=== PATIENT | female | born 1965 | race Caucasian/White ===

== ENCOUNTER → 2017-01-03 | Outpatient (CLI) | payer OTHER ==
[2017-01-03 07:56] LABS: Basophils # (A) 0.1 k/uL (0-0.2); Basophils % (A) 1 %; CH 31.1; CHCM 33.6; Eosinophils # (A) 0.1 k/uL (0-0.7); Eosinophils % (A) 3 %; HCT 39.8 % (34.0-46.0); HDW 2.35; HGB 13.1 gm/dL (11.4-16.0); Luc # (Auto) 0.11; Luc % (Auto) 2; Lymphocytes # (A) 1.6 k/uL (1.0-4.8); Lymphocytes % (A) 29 %; MCH 30.6 pg (25.0-35.0); MCHC 32.9 g/dL (31.0-37.0); MCV 93.2 fL (80.0-100.0); Mean Platelet Volume 7.4; Monocytes # (A) 0.3 k/uL (0-1.0); Monocytes % (A) 6 %; Neutrophils # (A) 3.3 k/uL (1.3-7.7); Neutrophils % (A) 60 %; RBC 4.28 m/uL (3.80-5.40); RDW 14.5 % (11.5-15.5); WBC 5.5 k/uL (3.8-10.6); WBC (Perox) 5.14
[2017-01-03 08:05] LABS: ALT 38 U/L (9-52); AST 21 U/L (14-36); Alkaline Phosphatase 108 U/L (38-126); Anion Gap 10 mmol/L; Blood Urea Nitrogen 17 mg/dL (7-17); Calcium 9.8 mg/dL (8.4-10.2); Carbon Dioxide 28 mmol/L (22-30); Chloride 105 mmol/L (98-107); Cholesterol 214 mg/dL (<200); Glucose 94 mg/dL (74-99); HDL Cholesterol 75 mg/dL (40-60); Non-African American GFR(MDRD) >60 (>60 ml/min/1.73 sqM); Potassium 4.9 mmol/L (3.5-5.1); Sodium 143 mmol/L (137-145); Total Bilirubin 0.5 mg/dL (0.2-1.3); Total Protein 7.3 g/dL (6.3-8.2)
== END | disposition home or self-care (01) ==
LOC: LABWHC1 07:16
PROVIDERS: ATTEND Family Medicine
DX: Z00.00 Encounter for general adult medical examination without abnormal findings (principal); F43.21 Adjustment disorder with depressed mood
CPT/HCPCS: 36415; 80053; 80061; 84439; 84443; 85025

== ENCOUNTER 2017-09-11 14:03 | Emergency (ER) | payer OTHER ==
--- NOTE | 2017-09-11 15:49 | ED ---
General Adult HPI - General Chief complaint: Head Injury Stated complaint: Fell hit back of head on sunday/headache Time Seen by Provider: 09/11/17 15:18 Source: patient, RN notes reviewed Mode of arrival: ambulatory Limitations: no limitations - History of Present Illness Initial comments: 52-year-old female presents to the emergency department for chief complaint of head trauma 3 days ago. Patient states she was letting her dog out when she did not have the lights turned on in her garage and she slipped falling backwards and hitting her head. Patient denies loss of consciousness or taking blood thinners. Patient also states she has mild pain in the neck. Patient states she has had a mild headache for the past 2 days. She states that she feels dizzy. Patient denies nausea or vomiting. Patient denies passing out. Patient denies any visual changes. Patient would like to be evaluated for this head trauma. Patient has no other complaints at this time including shortness of breath, chest pain, abdominal pain, nausea or vomiting, headache, or visual changes. - Related Data Allergies Allergy/AdvReac Type Severity Reaction Status Date / Time No Known Allergies Allergy Verified 09/11/17 14:09 Review of Systems ROS Statement: Those systems with pertinent positive or pertinent negative responses have been documented in the HPI. ROS Other: All systems not noted in ROS Statement are negative. Past Medical History Past Medical History: No Reported History History of Any Multi-Drug Resistant Organisms: None Reported Past Surgical History: Hysterectomy, Orthopedic Surgery Additional Past Surgical History / Comment(s): knee Past Psychological History: No Psychological Hx Reported Smoking Status: Never smoker Past Alcohol Use History: Occasional Past Drug Use History: None Reported General Exam Limitations: no limitations General appearance: alert, in no apparent distress Eye exam: Present: normal appearance, PERRL, EOMI, other (Negative raccoon sign) . Absent: scleral icterus, conjunctival injection, periorbital swelling, periorbital tenderness ENT exam: Present: normal exam, normal oropharynx (Uvula midline. ), mucous membranes moist, TM's normal bilaterally (No blood in the tympanic membranes), normal external ear exam (Negative Lopez sign) Neck exam: Present: tenderness (Tenderness in the posterior neck.), full ROM ( Full flexion and extension and rotation and lateral bending of the neck.). Absent: meningismus, lymphadenopathy, thyromegaly Respiratory exam: Present: normal lung sounds bilaterally. Absent: respiratory distress, wheezes, rales, rhonchi, stridor Cardiovascular Exam: Present: regular rate, normal rhythm, normal heart sounds. Absent: systolic murmur, diastolic murmur, rubs, gallop, clicks Neurological exam: Present: alert, oriented X3, CN II-XII intact, other (GCS 15. Upper and lower extremity strength 5 out of 5 bilaterally. Negative arm drift.) Psychiatric exam: Present: normal affect, normal mood Course Vital Signs 09/11/17 14:06 Temperature 97.4 F L Pulse Rate 75 Respiratory 18 Rate Blood Pressure 139/65 O2 Sat by Pulse 96 Oximetry Medical Decision Making - Medical Decision Making 52-year-old female since to the emergency determine for a chief complaint of head trauma 3 days ago. Patient slipped and hit her head on concrete. No dizziness preceding the fall. No loss of consciousness and no blood thinners. Patient has had a headache and dizziness since that time. Neuro exam shows no focal neuro deficits. GCS 15. I discussed with the patient the risks versus benefits of CT and patient would like to have the CAT scan to rule out any bleeds. No acute fracture or dislocation evident in the cervical spine. No acute intracranial hemorrhage, mass effect or midline shift seen. Patient is relieved after getting the results of the CAT scan. She was educated on return precautions. She will take Tylenol for pain. Patient refuses a note for work. She will return to the emergency Department if she has any worsening symptoms. Otherwise she will follow-up with primary care in 1-2 days. Disposition Clinical Impression: Head injury Disposition: HOME SELF-CARE Condition: Good Instructions: Head Injury (ED) Additional Instructions: Please take Tylenol for pain. Please return to the emergency department if you have any worsening symptoms including increasing dizziness, nausea or vomiting, severe headache, or confusion. Follow-up with primary care in 1-2 days otherwise. Is patient prescribed a controlled substance at d/c from ED?: No Referrals: Roger Carmen Jr, DO [Primary Care Provider] - 1-2 days Time of Disposition: 16:23
--- NOTE | 2017-09-11 15:58 | CT ---
EXAMINATION TYPE: CT brain estefania gaffney DATE OF EXAM: 09/11/2017 COMPARISON: NONE HISTORY: fall hitting back of head today CT DLP: 1628.2 mGycm Automated exposure control for dose reduction was used. TECHNIQUE: CT scan of the head and cervical spine are performed without contrast. FINDINGS: There is no acute intracranial hemorrhage, mass effect, or midline shift identified. The ventricles and sulci are within normal limits in size. The globes are intact and the visualized sin uses are remarkable for inflammatory change in the sphenoid sinus. Cervical spine is visualized in its entirety from C1 through upper thoracic levels and demonstrates n ear-anatomic alignment without evidence of acute fracture or dislocation. There is multilevel spondyl osis. Minimal anterolisthesis grade 1 C3-4, there is loss of disc height at the intervertebral levels including C3-4, C4-5, C5-6 and C6-7. There is foraminal encroachment present at C3-4 on the left, C4 -5 on the right, bilateral at C6-7. Midline posterior fusion anomaly present at C1. Prevertebral soft tissue appears within normal limits. The C1-C2 articulation is unremarkable. IMPRESSION: 1. There is no acute fracture or dislocation evident in the cervical spine. 2. No acute intracranial hemorrhage, mass effect, or midline shift is seen.
[2017-09-11 17:02] VITALS: BP 134/78; PULSE 82; RESP 20; TEMP 98
== END 2017-09-11 16:40 | disposition home or self-care (01) ==
LOC: EC 14:03
DX: S09.90XA Unspecified injury of head, initial encounter (principal); M54.2 Cervicalgia; R42 Dizziness and giddiness; R40.2412 Glasgow coma scale score 13-15, at arrival to emergency department; Z98.890 Other specified postprocedural states; W01.198A Fall on same level from slipping, tripping and stumbling with subsequent striking against other object, initial encounter; Y92.015 Private garage of single-family (private) house as the place of occurrence of the external cause; Y93.K1 Activity, walking an animal
CPT/HCPCS: 70450; 72125; 99283

== ENCOUNTER → 2017-10-10 | Outpatient (CLI) | payer OTHER ==
--- NOTE | 2017-10-11 14:37 | MM ---
Reason for exam: screening (asymptomatic). Last mammogram was performed 1 year and 8 months ago. History: Patient is postmenopausal. Family history of breast cancer in cousin at age 50. Benign left mammotome panel of the left breast, May 04, 2006. Physical Findings: A clinical breast exam by your physician is recommended on an annual basis and results should be correlated with mammographic findings. MG Screening Mammo w CAD Bilateral CC, MLO, and XCCL view(s) were taken. Prior study comparison: January 28, 2016, bilateral MG 3d screening mammo w/cad. April 07, 2014, bilateral MG screening mammo w CAD. There are scattered fibroglandular densities. No suspicious abnormality. Left biopsy marker noted. No significant changes when compared with prior studies. ASSESSMENT: Negative, BI-RAD 1 RECOMMENDATION: Routine screening mammogram of both breasts in 1 year.
== END | disposition home or self-care (01) ==
LOC: RADMAMWWP 07:10
PROVIDERS: ATTEND Obstetrics & Gynecology
DX: Z12.31 Encounter for screening mammogram for malignant neoplasm of breast (principal)
CPT/HCPCS: 77067

== ENCOUNTER → 2019-04-12 | Outpatient (CLI) | payer OTHER ==
--- NOTE | 2019-04-18 10:00 | MM ---
Reason for exam: screening (asymptomatic). Last mammogram was performed 1 year and 6 months ago. History: Patient is postmenopausal. Family history of breast cancer in cousin at age 50. Benign left mammotome panel of the left breast, May 04, 2006. Physical Findings: A clinical breast exam by your physician is recommended on an annual basis and results should be correlated with mammographic findings. MG 3D Screening Mammo W/Cad Bilateral CC, MLO, and XCCL view(s) were taken. Prior study comparison: October 10, 2017, bilateral MG screening mammo w CAD. January 28, 2016, bilateral MG 3d screening mammo w/cad. There are scattered fibroglandular densities. Previous mammotome biopsy in the left breast. A few scattered and grouped punctate calcifications are unchanged. No significant changes when compared with prior studies. ASSESSMENT: Benign, BI-RAD 2 RECOMMENDATION: Routine screening mammogram of both breasts in 1 year.
== END | disposition home or self-care (01) ==
LOC: RADMAMWWP 08:36
PROVIDERS: ATTEND Obstetrics & Gynecology
DX: Z12.31 Encounter for screening mammogram for malignant neoplasm of breast (principal); Z80.3 Family history of malignant neoplasm of breast
CPT/HCPCS: 77063; 77067

== ENCOUNTER → 2019-05-12 | Outpatient (CLI) | payer OTHER ==
--- NOTE | 2019-05-12 10:58 | BD ---
EXAMINATION TYPE: Axial Bone Density DATE OF EXAM: 05/12/2019 COMPARISON: NONE CLINICAL HISTORY: Height: 66 Weight: 207.3 FRAX RISK QUESTIONS: Alcohol (3 or more units per day): nono Family History (Parent hip fracture): no Glucocorticoids (More than 3mos): no (Ex: prednisone, prednisolone, methylprednisolone, dexamethasone, and hydrocortisone). History of Fracture in Adulthood: no Secondary Osteoporosis: 1. Type 1 Diabetes: no 2. Hyperthyroidism: no 3. Menopause before 45: yes 4. Malnutrition: no 5. Chronic liver disease: no Rheumatoid Arthritis: no Current Tobacco Use: no RISK FACTORS HISTORY OF: History of Wrist Fracture: right When: as a child Family History of Osteoporosis: no Active: yes Diet low in dairy products/other sources of calcium: yes Postmenopausal woman: age 42 Lost more than 2 inches in height since high school: no MEDICATIONS: Lexapro Additional History: EXAM MEASUREMENTS: Bone mineral densitometry was performed using the [employer] System. Bone mineral density as measured about the Lumbar spine is: ----- L1-L4(G/cm2): 1.125 T Score Values are as follows: ----- L2: -1.2 ----- L3: 0.4 ----- L4: -0.6 ----- L1-L4: -0.5 Bone mineral density has: decreased -0.5 % since study of: 04.07.2014 Bone mineral density about the R hip (g/cm2): 0.928 Bone mineral density about the L hip (g/cm2): 0.928 T Score values are as follows: -----R Neck: -0.8 -----L Neck: -0.8 -----R Total: 0.1 -----L Total: 0.2 Bone mineral density has: decreased -4.7 % since study of: 04.07.2014 IMPRESSION: No evidence for osteoporosis or osteopenia. NOTE: T-SCORE=SD OF THE YOUNG ADULT MEAN.
== END | disposition home or self-care (01) ==
LOC: RADBDWWP 07:09
PROVIDERS: ATTEND Obstetrics & Gynecology
DX: N95.1 Menopausal and female climacteric states (principal)
CPT/HCPCS: 77080

== ENCOUNTER → 2020-04-15 | Outpatient (CLI) | payer OTHER ==
--- NOTE | 2020-04-17 15:16 | US ---
EXAMINATION TYPE: US pelvic complete DATE OF EXAM: 04/15/2020 COMPARISON: CT, US CLINICAL HISTORY: R10.2 Pelvic Pain. Left pelvic pain x 2 months; hysterectomy with ovaries still pre sent; constipation TECHNIQUE: Transabdominal (TA). Transabdominal sonographic images of the pelvis were acquired. Date of LMP: NA EXAM MEASUREMENTS: Right Ovary: 1.6 x 1.1 x 1.0 cm Left Ovary: 2.1 x 1.3 x 0.8 cm 1. Uterus: surgically removed 2. Endometrium: surgically removed 3. Right Ovary: small follicles, wnl 4. Left Ovary: small follicles, wnl Spectral, color and waveform Doppler imaging color-flow, vascular waveforms to the ovaries 5. Bilateral Adnexa: wnl 6. Posterior cul-de-sac: wnl 7. Bladder: appears wnl; only right ureteral jet was seen. IMPRESSION: Postop changes.
== END | disposition home or self-care (01) ==
LOC: RADUSWWP 08:03
PROVIDERS: ATTEND Obstetrics & Gynecology
DX: Z98.890 Other specified postprocedural states (principal)
CPT/HCPCS: 76856

== ENCOUNTER → 2020-05-03 | Outpatient (CLI) | payer OTHER ==
--- NOTE | 2020-05-03 12:35 | CT ---
EXAMINATION TYPE: CT abdomen pelvis wo/w con DATE OF EXAM: 05/03/2020 HISTORY: Pelvic pain, pelvic mass CT DLP: 2186mGycm Automated Exposure Control for Dose Reduction was Utilized. CONTRAST: CT scan of the abdomen and pelvis is performed with oral and without and with IV Contrast, patient in jected with 100 mL of Isovue 300. COMPARISON: CT abdomen and pelvis February 01, 2012. Pelvic ultrasound April 15, 2020 FINDINGS: LUNG BASES: No significant abnormality is appreciated. LIVER/GB: Cholecystectomy clips are now present. PANCREAS: No significant abnormality is seen. SPLEEN: No significant abnormality is seen. ADRENALS: No significant abnormality is seen. KIDNEYS: Single nonobstructing 2 to 3 mm calculus right kidney lower pole level axial image 33. Postc ontrast images show symmetric cortical medullary uptake and excretion without hydronephrosis seen scott aterally. BOWEL: Oral contrast reaches the right colon. No suspicious small or large bowel dilatation. Persist a normal-appearing appendix from base of cecum. UTERUS/ADNEXA: Uterus is surgically absent. Prominent ovary is normal in size on axial image 67 corre lates with recent ultrasound. LYMPH NODES: No new greater than 1cm abdominal or pelvic lymph nodes are appreciated. Few prominent b ut subcentimeter bilateral groin lymph nodes OSSEOUS STRUCTURES: Slight underlying scoliotic curvature. Mild to moderate disc space narrowing lumb osacral junction. Mild to moderate narrowing in both hip joints with spurring. OTHER: No significant additional abnormality is seen. IMPRESSION: No suspicious mass or adenopathy with particular attention to the pelvis. Findings correlate with recent pelvic ultrasound study.
== END | disposition home or self-care (01) ==
LOC: RADCTMAIN 09:33
PROVIDERS: ATTEND Obstetrics & Gynecology
DX: R10.2 Pelvic and perineal pain (principal); R68.89 Other general symptoms and signs; R19.00 Intra-abdominal and pelvic swelling, mass and lump, unspecified site
CPT/HCPCS: 74178; Q9967

== ENCOUNTER 2021-04-19 11:19 | Emergency (ER) | payer OTHER ==
[2021-04-19 11:24] VITALS: BP 126/84; PULSE 67; RESP 17; TEMP 98
[2021-04-19] MEDS ORDERED: ORPHENADRINE 30 MG/ML 2 ML VIAL IM STA (11:39)
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
--- NOTE | 2021-04-19 12:38 | XR ---
EXAMINATION TYPE: XR elbow complete LT DATE OF EXAM: 04/19/2021 CLINICAL HISTORY: pain TECHNIQUE: Frontal, lateral and oblique images of the left elbow are obtained. COMPARISON: None. FINDINGS: There is no acute fracture/dislocation evident of the elbow. No abnormal fat pad signs ar e seen. The overlying soft tissue appears unremarkable. IMPRESSION: There is no acute fracture or dislocation of the elbow. ICD 10 NO FRACTURE, INITIAL EVALUATION
--- NOTE | 2021-04-19 12:39 | XR ---
EXAMINATION TYPE: XR wrist complete RT DATE OF EXAM: 04/19/2021 CLINICAL HISTORY: pain TECHNIQUE: Frontal, lateral and oblique images of the right wrist are obtained. COMPARISON: None. FINDINGS: There is no acute fracture/dislocation evident. The joint spaces appear within normal limits. The o verlying soft tissue appears unremarkable. IMPRESSION: There is no acute fracture or dislocation seen. ICD 10 NO FRACTURE, INITIAL EVALUATION
[2021-04-19 12:51] LABS: Appearance,Urine Clear (Clear); Bilirubin,Urine Negative (Negative); Blood,Urine Negative (Negative); Color,Urine Light Yellow; Glucose,Urine (UA) Negative (Negative); Ketones,Urine Negative (Negative); Leukocyte Esterase,Urine Large (Negative); Mucus,Urine Rare /hpf; Nitrite,Urine Negative (Negative); PH, Urine 5.5 (5.0-8.0); Protein,Urine Negative (Negative); RBC,Urine 2 /hpf (0-5); Specific Gravity,Urine 1.022 (1.001-1.035); Squamous Epithelial Cell,Urine 6 /hpf (0-4); Urobilinogen,Urine <2.0 mg/dL (<2.0); WBC,Urine 15 /hpf (0-5)
== END 2021-04-19 13:39 | disposition home or self-care (01) ==
LOC: EC 11:19
DX: S50.02XA Contusion of left elbow, initial encounter (principal); M25.531 Pain in right wrist; M54.2 Cervicalgia; V89.2XXA Person injured in unspecified motor-vehicle accident, traffic, initial encounter; Y92.410 Unspecified street and highway as the place of occurrence of the external cause
CPT/HCPCS: 81001; 87086; 73080; 73110; 72125; 99284; 96372; J2360

== ENCOUNTER → 2021-04-20 | Outpatient (CLI) | payer OTHER ==
--- NOTE | 2021-04-20 11:55 | XR ---
EXAMINATION TYPE: XR hand complete RT DATE OF EXAM: 04/20/2021 COMPARISON: NONE HISTORY: Pain TECHNIQUE: Three views are submitted. FINDINGS: The osseous structures are intact. The joint spaces are preserved and there is no acute fracture or dislocation. IMPRESSION: 1. No definite acute fracture or dislocation if symptoms persist, follow-up study in 7 to 10 days wo uld be suggested
== END | disposition home or self-care (01) ==
LOC: RADXRMAIN 11:32
PROVIDERS: ATTEND Emergency Medicine
DX: M79.641 Pain in right hand (principal)

== ENCOUNTER → 2021-05-03 | Outpatient (CLI) | payer OTHER ==
--- NOTE | 2021-05-03 11:13 | XR ---
EXAM TYPE: LUMBAR SPINE X RAY SERIES COMPARISON: 01/16/2013 HISTORY: Pain TECHNIQUE: 3 views are submitted. FINDINGS: Alignment is anatomic. The pedicles are intact. The transverse processes are intact. There is surg ical clips in the gallbladder fossa with curvature of the spine. There is multilevel degenerative dis c disease and facet arthropathy. Mild deformity of the superior endplate of L3 was present on the sandrine or exam of 2012. Mild multilevel facet arthropathy. IMPRESSION: 1. Multilevel degenerative disc disease and facet arthropathy. 2. Chronic appearing superior endplate compression deformity of L3 similar to the prior exam of 2012.
== END | disposition home or self-care (01) ==
LOC: RADXRMAIN 10:45
PROVIDERS: ATTEND Emergency Medicine
DX: M51.36 Other intervertebral disc degeneration, lumbar region (principal); M47.816 Spondylosis without myelopathy or radiculopathy, lumbar region; M43.8X6 Other specified deforming dorsopathies, lumbar region
CPT/HCPCS: 72100

== ENCOUNTER → 2021-12-20 | Outpatient (CLI) | payer OTHER ==
--- NOTE | 2021-12-20 16:25 | US ---
EXAMINATION TYPE: US carotid duplex BILAT DATE OF EXAM: 12/20/2021 COMPARISON: NONE CLINICAL HISTORY: R55 SYNCOPE. TECHNIQUE: Carotid duplex ultrasound examination. Indirect Doppler criteria was utilized. FINDINGS: EXAM MEASUREMENTS: RIGHT: Peak Systolic Velocity (PSV) cm/sec ----- Right CCA: 111.0 ----- Right ICA: 157.0 ----- Right ECA: 123.0 ICA/CCA ratio: 1.4 RIGHT: End Diastole cm/sec ----- Right CCA: 22.4 ----- Right ICA: 40.4 ----- Right ECA: 13.2 LEFT: Peak Systolic Velocity (PSV) cm/sec ----- Left CCA: 118.0 ----- Left ICA: 107.0 ----- Left ECA: 90.7 ICA/CCA ratio: 0.9 LEFT: End Diastole cm/sec ----- Left CCA: 26.7 ----- Left ICA: 34.8 ----- Left ECA: 16.0 VERTEBRALS (direction of flow): Right Vertebral: Antegrade Left Vertebral: Antegrade Rhythm: Normal No significant stenosis IMPRESSION: 1. 50-69% stenosis of the right carotid bifurcation by peak systolic velocity. 2. Less than 50% stenosis of the left carotid bifurcation Criteria for Assigning % of Stenosis / Diameter reduction (Estimation based on the indirect measurements of the internal carotid artery velocities (ICA PSV). 1. Normal (no stenosis)=ICA PSV < 125 cm/s: ratio < 2.0: ICA EDV<40 cm/s. 2. Less than 50% stenosis=ICA PSV < 125 cm/s: ratio < 2.0: ICA EDV<40 cm/s. 3. 50 to 69% stenosis=ICA PSV of 125 to 230 cm/s: ration 2.0 ? 4.0: ICA EDV 40-100 cm/s. 4. Greater than 70% stenosis to near occlusion= ICA PSV > 230 cm/s: ratio > 4.0: ICA EDV > 100 cm/s. 5. Near occlusion= ICA PSV velocities may be low or undetectable: variable ratio and ICA EDV. 6. Total occlusion=unable to detect flow.
== END | disposition home or self-care (01) ==
LOC: RADUSWWP 15:22
PROVIDERS: ATTEND Family Medicine
DX: I65.23 Occlusion and stenosis of bilateral carotid arteries (principal)
CPT/HCPCS: 93880

== ENCOUNTER → 2022-01-12 | Outpatient (CLI) | payer OTHER ==
--- NOTE | 2022-01-12 17:34 | CA ---
Transthoracic Echo Report Name: Nadege Ervin Age: 56 Gender: F : 1965 Exam Date: 01/12/2022 13:21 Exam Location: [facility] Ht (in): 67 Wt (lb): 238 Ordering Physician: Roger Carmen DO Attending/Referring Phys: Content Specialist Jud Ingram RDCS Procedure CPT: Indications: R55 Syncope Cardiac Hx: Technical Quality: Good Contrast 1: Total Dose (mL): Contrast 2: Total Dose (mL): MEASUREMENTS (Male / Female) Normal Values 2D ECHO LV Diastolic Diameter PLAX 4.6 cm 4.2 - 5.9 / 3.9 - 5.3 cm LV Systolic Diameter PLAX 3.1 cm IVS Diastolic Thickness 1.1 cm 0.6 - 1.0 / 0.6 - 0.9 cm LVPW Diastolic Thickness 1.1 cm 0.6 - 1.0 / 0.6 - 0.9 cm LV Relative Wall Thickness 0.5 RV Internal Dim ED PLAX 2.9 cm LA Systolic Diameter LX 3.6 cm 3.0 - 4.0 / 2.7 - 3.8 cm M-MODE Aortic Root Diameter MM 2.4 cm MV E Point Septal Separation 0.2 cm AV Cusp Separation MM 1.9 cm DOPPLER AV Peak Velocity 138.7 cm/s AV Peak Gradient 7.7 mmHg MV Area PHT 2.9 cm??? Mitral E Point Velocity 53.5 cm/s Mitral A Point Velocity 56.2 cm/s Mitral E to A Ratio 1.0 MV Deceleration Time 261.5 ms MV E' Velocity 8.9 cm/s Mitral E to MV E' Ratio 6.0 FINDINGS Left Ventricle Left ventricular ejection fraction is estimated at 60-65 %. Left ventricular cavity size normal. Borderline left ventricular hypertrophy. Right Ventricle Normal right ventricular size and function. Unable to estimate the right ventricular systolic pressure no TR jet Right Atrium Normal right atrial size. Left Atrium Normal left atrial size. Patent foramen ovale present with a [id number] shunt. Mitral Valve Structurally normal mitral valve. No mitral stenosis, regurgitation or prolapse. Aortic Valve Trileaflet aortic valve. No aortic valve stenosis or regurgitation. Tricuspid Valve Structurally normal tricuspid valve. Pulmonic Valve Structurally normal pulmonic valve. Pericardium Normal pericardium. No pericardial effusion. Aorta Normal size aortic root and proximal ascending aorta. CONCLUSIONS Normal LV systolic function Previewed by: Dr. Arvind Seymour MD (Electronically Signed) Final Date: 12 January 2022 17:33
== END | disposition home or self-care (01) ==
LOC: RADECHMAIN 12:59
PROVIDERS: ATTEND Family Medicine
DX: R55 Syncope and collapse (principal)
CPT/HCPCS: 93306

== ENCOUNTER → 2022-10-04 | Outpatient (CLI) | payer OTHER ==
--- NOTE | 2022-10-05 08:06 | MM ---
Reason for Exam: Screening (asymptomatic). Last mammogram was performed 1 year(s) and 4 month(s) ago. Patient History: Menarche at age 11. First Full-Term at age 20. Hysterectomy at age 38. Postmenopausal. 05/04/2006, Benign Core Biopsy on the left side. Maternal cousin had breast cancer, age 50. Maternal cousin had breast cancer. Maternal cousin had breast cancer. Risk Values: Cinthya 5 year model risk: 1.5%. NCI Lifetime model risk: 7.9%. Prior Study Comparison: 10/10/2017 Bilateral Screening Mammogram, [facility]. 04/12/2019 Bilateral Screening Mammogram, [facility]. 06/09/2021 Bilateral Screening Mammogram, [facility]. Tissue Density: There are scattered fibroglandular densities. Findings: Analyzed By CAD. There is no suspicious group of microcalcifications or new suspicious mass in either breast. Overall Assessment: Negative, BI-RAD 1 Management: Screening Mammogram of both breasts in 1 year. . Patient should continue monthly self-breast exams. A clinical breast exam by your physician is recommended on an annual basis. This exam should not preclude additional follow-up of suspicious palpable abnormalities. Note on Cinthya scores and lifetime risk: 1. A Cinthya score greater than 3% is considered moderate risk. If this is the case, consider specialist referral to assess eligibility for a risk reducing agent. 2. If overall lifetime risk for the development of breast cancer is 20% or higher, the patient may qualify for future screening with alternating mammogram and breast MRI. Electronically signed and approved by: Mars Mandel M.D. Radiologis
== END | disposition home or self-care (01) ==
LOC: RADMAMWWP 07:28
PROVIDERS: ATTEND Obstetrics & Gynecology
DX: Z12.31 Encounter for screening mammogram for malignant neoplasm of breast (principal); Z78.0 Asymptomatic menopausal state; Z80.3 Family history of malignant neoplasm of breast
CPT/HCPCS: 77063; 77067

== ENCOUNTER → 2023-06-11 | Outpatient (CLI) | payer OTHER ==
[2023-06-11 14:46] LABS: Basophils # (A) 0.06 X 10*3/uL (0.00-0.10); Eosinophils # (A) 0.11 X 10*3/uL (0.04-0.35); Eosinophils % (A) 1.8 %; HCT 39.9 % (37.2-46.3); HGB 12.8 g/dL (12.0-15.0); Lymphocytes # (A) 1.89 X 10*3/uL (0.90-5.00); Lymphocytes % (A) 30.2 %; MCH 30.3 pg (27.0-32.0); MCHC 32.1 g/dL (32.0-37.0); MCV 94.5 FL (80.0-97.0); Mean Platelet Volume 10.2 FL (9.5-12.2); Monocytes # (A) 0.47 X 10*3/uL (0.20-1.00); Monocytes % (A) 7.5 %; NRBC Per 100 WBC 0 X 10*3/uL (0.00-0.01); Neutrophils # (A) 3.71 X 10*3/uL (1.80-7.70); Neutrophils % (A) 59.2 %; Platelet Count 300 X 10*3/uL (140-440); RBC 4.22 X 10*6/uL (4.10-5.20); RDW 13.7 % (11.5-14.5); WBC 6.26 X 10*3/uL (4.50-10.00)
[2023-06-11 15:41] LABS: Erythrocyte Sedimentation Rate 6 mm/Hr (0-30)
== END | disposition home or self-care (01) ==
LOC: LABWHC1 08:05
PROVIDERS: ATTEND Family Medicine
DX: M19.90 Unspecified osteoarthritis, unspecified site (principal)
CPT/HCPCS: 36415; 85025; 85652; 86140

== ENCOUNTER → 2024-07-01 | Outpatient (CLI) | payer OTHER ==
--- NOTE | 2024-07-01 12:27 | XR ---
EXAMINATION TYPE: XR lumbosacral spine min 4V DATE OF EXAM: 07/01/2024 CLINICAL INDICATION: Female, 58 years old with history of M54.50 LOW BACK PAIN, UNSPECIFIED, pain TECHNIQUE: Frontal, lateral, and oblique images of the lumbar spine are obtained. COMPARISON: Lumbar spine 05/03/2021 FINDINGS: There are 5 lumbar type vertebral bodies redemonstrated. The lumbar spine redemonstrates dextroconvex scoliosis at L3 level. Vertebral body heights are within normal limits. Moderate disk s pace narrowing and vacuum disc phenomenon at L5-S1 level . The oblique images show mild multilevel an terior and lateral spurring. Overlying cholecystectomy clips are redemonstrated. IMPRESSION: As above. No significant change from prior. [facility], , 07/01/2024 12:25 PM
== END | disposition home or self-care (01) ==
LOC: RADXRMAIN 11:53
PROVIDERS: ATTEND Family Medicine
DX: M51.360 Other intervertebral disc degeneration, lumbar region with discogenic back pain only (principal); Z90.49 Acquired absence of other specified parts of digestive tract
CPT/HCPCS: 72110

== ENCOUNTER → 2024-07-16 | Outpatient (CLI) | payer OTHER ==
--- NOTE | 2024-07-16 10:53 | MM ---
Reason for Exam: Screening (asymptomatic). Last mammogram was performed 1 year(s) and 9 month(s) ago. Patient History: Menarche at age 11. First Full-Term at age 20. Hysterectomy at age 38. Postmenopausal. 05/04/2006, Benign Core Biopsy on the left side. Maternal cousin had breast cancer, age 50. Maternal cousin had breast cancer. Maternal cousin had breast cancer. Risk Values: Cinthya 5 year model risk: 1.5%. NCI Lifetime model risk: 7.7%. Prior Study Comparison: 04/12/2019 Bilateral Screening Mammogram, [facility]. 06/09/2021 Bilateral Screening Mammogram, [facility]. 10/04/2022 Bilateral MG 3D screening mammo w/cad, [facility]. Tissue Density: There are scattered areas of fibroglandular density. Findings: Analyzed By CAD. There is no suspicious group of microcalcifications or new suspicious mass in either breast. Surgical clip in the left breast. Benign-appearing calcifications. Stable appearing lymph nodes in the axilla. Overall Assessment: Benign, BI-RAD 2 Management: Screening Mammogram of both breasts in 1 year. . Patient should continue monthly self-breast exams. A clinical breast exam by your physician is recommended on an annual basis. This exam should not preclude additional follow-up of suspicious palpable abnormalities. Note on Cinthya scores and lifetime risk: 1. A Cinthya score greater than 3% is considered moderate risk. If this is the case, consider specialist referral to assess eligibility for a risk reducing agent. 2. If overall lifetime risk for the development of breast cancer is 20% or higher, the patient may qualify for future screening with alternating mammogram and breast MRI. [facility], , 07/16/2024 10:51 AM. Electronically signed and approved by: Rojas Becerra M.D. Radiologis
== END | disposition home or self-care (01) ==
LOC: RADMAMWWP 06:57
PROVIDERS: ATTEND Family Medicine
DX: Z12.31 Encounter for screening mammogram for malignant neoplasm of breast (principal); R92.323 Mammographic fibroglandular density, bilateral breasts; Z78.0 Asymptomatic menopausal state; Z80.3 Family history of malignant neoplasm of breast
CPT/HCPCS: 77063; 77067

== ENCOUNTER → 2024-08-20 | Outpatient (CLI) | payer OTHER ==
[2024-08-20 14:54] VITALS: BP 116/78; PULSE 77; RESP 16; TEMP 98.4
--- NOTE | 2024-08-20 15:15 | P.SLEEP ---
History of Present Illness DATE: 08/20/2024 CONSULTATION/NEW PATIENT EVALUATION HISTORY OF PRESENT ILLNESS/SLEEP-WAKE EVALUATION: 59-year-old lady had been e valuated in the sleep center for possible obstructive sleep apnea hypopnea syndrome. SLEEP SCHEDULE: Usually sleep schedule from 9:3010 PM until 77:30 AM. FALLING ASLEEP: Patient does have difficulties with falling asleep, although does not watch TV in bedroom. DURING SLEEP: Patient wakes up from sleep 4 times with 2 episodes of nocturia. Positive history of sleep talking, grinding teeth, sweating. No history of hypnogogical hallucinations, sleep paralysis, or cataplexy. DURING THE DAY/WAKE STATE: In the morning patient wake up tired, has difficulties to pay attention. Positive history of problems with memory, concentration, depression. [place] sleepiness scale is 8. Patient does not take naps. PAST MEDICAL HISTORY: Depression, hyperlipidemia, ADHD, glaucoma. PAST SURGICAL HISTORY: Partial hysterectomy, cholecystectomy. MEDICATIONS: Atorvastatin 5 mg once a day, escitalopram 20 mg once a day, timolol eyedrops dexamphetamine 60 mg in the morning. SOCIAL HISTORY: Please see below. FAMILY HISTORY: See below. REVIEW OF SYSTEMS: Multiple awakenings from sleep, difficulties to initiate sleep. No fevers. No double vision. No recent chest pain. No shortness of breath . No abdominal pain. No bleeding episodes. No blood in urine. No seizure episodes. PHYSICAL EXAMINATION: GENERAL: A pleasant patient without any distress. VITAL SIGNS: Please see below, weight 253 pounds, BMI 42.1. HEENT: PERRLA, EOMI. Evaluation of oropharynx showed tongue protrudes midline, low position of soft palate Mallampati 23. NECK: Supple. No JVD. Thyroid is not palpable. 17 inches in circumference. LUNGS: Clear to percussion and to auscultation. Good air exchange. No wheezing or rhonchi. HEART: S1, S2 regular. No murmurs, gallops or rubs. ABDOMEN: Soft and nontender. Bowel sounds are present. No organomegaly appreciated. EXTREMITIES: No clubbing or cyanosis. [employer]: Awake, alert, and oriented x3. Cranial nerves 2 to 7 intact. There is no fasciculation or atrophy noted. No focal deficits observed. ASSESSMENT: 1. Multiple awakenings from sleep, low position of soft palate Mallampati 3, wide neck 17 inches in circumference. Obstructive sleep apnea hypopnea syndrome. 2. Obesity, BMI 42.1. 3. Psychophysiological insomnia. 4. Depression. 5 ADHD. 6 . Hyperlipidemia. 7. Glaucoma. 8. Status post partial hysterectomy 2012. 9 . Status post cholecystectomy 2014. PLAN: 1. Polysomnography for evaluation of patient's breathing during sleep. 2. Following plan after reading sleep study. 3. Preferable position during sleep on the side. 4. No driving if patient feels any sleepiness. Patient is aware of civil and criminal liability for unsafe driving. 5. Sleep hygiene with regular sleep time for at least 7.5-8 hours. 6. Watching losing weight. Thank you very much for referring this patient for consultation. Sincerely, Obi Lewis MD, PhD, FAASM. Diplomat of [place] [employer], Sleep Medicine Board by [place] [employer] [place] [employer]roll Benefits Administrator of [facility] [place] cc: Roger Carmen DO Past Medical History Past Medical History: Hyperlipidemia Additional Past Medical History / Comment(s): Depression, ADHD, Glaucoma History of Any Multi-Drug Resistant Organisms: None Reported Past Surgical History: Cholecystectomy, Hysterectomy, Orthopedic Surgery, Tubal Ligation Additional Past Surgical History / Comment(s): L knee - arthroscopy, partiall hysterectomy Past Psychological History: ADD/ADHD, Depression Smoking Status: Never smoker Past Alcohol Use History: Occasional Past Drug Use History: None Reported - Past Family History Mother Family Medical History: Congestive Heart Failure (CHF), COPD, Diabetes Mellitus Additional Family Medical History / Comment(s): CHF Father Family Medical History: Diabetes Mellitus, Hypertension Medications and Allergies Home Medications Medication Instructions Recorded Confirmed Type Cyclobenzaprine [Flexeril] 10 mg PO TID PRN #15 tab 04/19/21 Rx Atorvastatin [Lipitor] 5 mg PO DIRECTED 08/20/24 08/20/24 History Escitalopram Oxalate [Lexapro] 20 mg PO HS 08/20/24 08/20/24 History Allergies Allergy/AdvReac Type Severity Reaction Status Date / Time No Known Allergies Allergy Verified 09/11/17 14:09 Physical Exam Vitals: Vital Signs Temp Pulse Resp BP Pulse Ox 08/20/24 14:51 98.4 F 77 16 116/78 95 Intake and Output 08/20/24 08/20/2408/20/25 06:59 14:59 22:59 Other: Weight 114.759 kg Sleep Note - Sleep Data ESS Total: 8 - Sleep Note Sleep Note: Temperature: 98.4 F Pulse Rate: 77 Respiratory Rate: 16 Blood Pressure: 116/78 SpO2: 95 Height: 5 ft 5 in Weight: 114.759 kg BMI: Neck Circumference: 17
== END ==
LOC: 3 N SLEEP 14:31
PROVIDERS: ATTEND Internal Medicine
DX: G47.33 Obstructive sleep apnea (adult) (pediatric) (principal); E66.9 Obesity, unspecified; F32.A Depression, unspecified; F90.9 Attention-deficit hyperactivity disorder, unspecified type; E78.5 Hyperlipidemia, unspecified; H40.9 Unspecified glaucoma; Z68.41 Body mass index [BMI] 40.0-44.9, adult; Z90.49 Acquired absence of other specified parts of digestive tract; Z98.890 Other specified postprocedural states
CPT/HCPCS: 99211